=== PATIENT | female | born 1950 | race Caucasian/White ===

== ENCOUNTER → 2016-06-25 | Outpatient (CLI) | payer BC | END | disposition home or self-care (01) | LOC: GMA 10:33 | PROVIDERS: ATTEND Nurse Practitioner Family | DX: R20.2 Paresthesia of skin (principal); R53.82 Chronic fatigue, unspecified ==

== ENCOUNTER → 2016-11-04 | Outpatient (CLI) | payer BC | LOC: SL 20:30 | PROVIDERS: ATTEND Family Medicine | DX: G47.33 Obstructive sleep apnea (adult) (pediatric) (principal) ==

== ENCOUNTER → 2016-12-02 | Outpatient (CLI) | payer BC | LOC: SL 20:30 | PROVIDERS: ATTEND Family Medicine | DX: G47.33 Obstructive sleep apnea (adult) (pediatric) (principal); F51.09 Other insomnia not due to a substance or known physiological condition; G47.10 Hypersomnia, unspecified; I10 Essential (primary) hypertension ==

== ENCOUNTER 2017-09-16 05:37 | Day surgery (SDC) | payer BC ==
[2017-09-16] MEDS ORDERED: PROPOFOL 200 MG/20 ML VIAL IV ONE (05:38)
[2017-09-16] MEDS ORDERED: LIDOCAINE 1% 10 ML VIAL INJ ONE (05:38)
[2017-09-16] MEDS ORDERED: LACTATED RINGERS 1,000 ML ONE (06:34)
[2017-09-16] MEDS ORDERED: fentaNYL CITRATE INJ 50 MCG/ML AMP ONE (08:02)
[2017-09-16 09:26] VITALS: BP 110/82; TEMP 97.8; O2SAT 98
--- NOTE | 2017-09-16 09:29 | OP ---
DATE OF PROCEDURE: 09/16/17 PREOPERATIVE DIAGNOSIS: 1. Colorectal cancer screening. POSTOPERATIVE DIAGNOSIS: 1. Sigmoid colonic diverticulosis. PROCEDURE: 1. Colonoscopy. SURGEON: Heri Curry MD ANESTHESIA: Monitored anesthesia care. ESTIMATED BLOOD LOSS: Less than 5 mL. COMPLICATIONS: No immediate complications. PROCEDURE: The patient was placed in the left lateral decubitus position. After monitored anesthesia care was achieved, the adult Olympus colonoscope was inserted through the anus and into the rectum and advanced to the cecum without difficulty under direct visualization. The cecum was identified by the ileocecal valve and the appendiceal orifice, photodocumentation of these locations was performed. The patients bowel preparation was good. The endoscope was then progressively withdrawn and the total colonic lumen evaluated. Retroflexion was performed in the rectum. The endoscope was then withdrawn and the procedure terminated. The patient tolerated the procedure well with no immediate complications. FINDINGS: Mild diverticulosis was seen in the sigmoid colon. There was no evidence of inflammation or bleeding. The remainder of the exam was otherwise unremarkable. There were no polyps or masses seen. IMPRESSION: Sigmoid colon diverticulosis. RECOMMENDATIONS: 1. Recommend daily fiber supplementation. 2. Repeat colonoscopy in ten years for screening. 3. Followup with primary care provider as previously scheduled. #[id number] [facility]
== END 2017-09-16 09:26 | disposition home or self-care (01) ==
LOC: AMB 05:37
PROVIDERS: ATTEND Internal Medicine Gastroenterology
DX: Z12.11 Encounter for screening for malignant neoplasm of colon (principal); K57.30 Diverticulosis of large intestine without perforation or abscess without bleeding; I48.91 Unspecified atrial fibrillation; I10 Essential (primary) hypertension; E66.9 Obesity, unspecified; Z88.5 Allergy status to narcotic agent; Z88.8 Allergy status to other drugs, medicaments and biological substances; Z79.899 Other long term (current) drug therapy
CPT/HCPCS: 00812; 45378; J3010; J3490; J7120

== ENCOUNTER → 2017-10-20 | Outpatient (CLI) | payer BC | LOC: GMAL 10:30 | PROVIDERS: ATTEND Family Medicine | DX: E53.9 Vitamin B deficiency, unspecified (principal); R53.82 Chronic fatigue, unspecified; E55.9 Vitamin D deficiency, unspecified; I10 Essential (primary) hypertension; E78.4 Other hyperlipidemia ==

== ENCOUNTER → 2018-01-18 | Outpatient (CLI) | payer BC | LOC: GMAL 10:50 | PROVIDERS: ATTEND Family Medicine | DX: E53.9 Vitamin B deficiency, unspecified (principal); E55.9 Vitamin D deficiency, unspecified ==

== ENCOUNTER → 2019-05-02 | Outpatient (CLI) | payer MEDICARE | LOC: GMAL 10:31 | PROVIDERS: ATTEND Family Medicine | DX: D51.3 Other dietary vitamin B12 deficiency anemia (principal); R53.82 Chronic fatigue, unspecified; E55.9 Vitamin D deficiency, unspecified; I10 Essential (primary) hypertension; E78.49 Other hyperlipidemia ==

== ENCOUNTER → 2020-05-07 | Outpatient (CLI) | payer MEDICARE | LOC: GMAL 11:04 | PROVIDERS: ATTEND Family Medicine | DX: E53.8 Deficiency of other specified B group vitamins (principal); R53.82 Chronic fatigue, unspecified; E55.9 Vitamin D deficiency, unspecified; R53.83 Other fatigue ==